=== PATIENT | male | born 1960 | race Caucasian/White ===

== ENCOUNTER 2017-01-22 11:41 | Day surgery (SDC) | payer OTHER ==
[~2017-01-22 11:41] MED LIST: ASPIRIN EC 325 MG TAB PO ONE; DIAZEPAM 5 MG TAB PO ONE; FAMOTIDINE 20 MG TAB PO ONE; NS 1,000 ML IV ONE; diphenhydrAMINE 25 MG CAP PO ONE
[2017-01-22] MEDS ORDERED: LIDOCAINE 1% 30 ML SDV ONE (11:45)
[2017-01-22] MEDS ORDERED: VERAPAMIL 5 MG/2 ML VIAL ONE (11:46)
[2017-01-22] MEDS ORDERED: fentaNYL 100 MCG/2 ML INJ ONE (11:46)
[2017-01-22] MEDS ORDERED: MIDAZOLAM 2 MG/2 ML VIAL ONE ×2 (11:46)
[2017-01-22] MEDS ORDERED: HEPARIN 10,000 UNIT/10 ML MDV ONE (11:46)
[2017-01-22] MEDS ORDERED: IOPAMIDOL (ISOVUE-370) 150 ML BTL IV ONE (11:47)
[2017-01-22 11:51] LABS: % IMMATURE GRANULYOCYTES 1.1 % (0.0-1.1); ABSOLUTE IMMATURE GRANULOCYTES 0.09 10^3/uL (0.00-0.10); ADD DIFF? NO; ADD MORPH? NO; ADD SCAN? NO; ATYPICAL LYMPHOCYTE FLAG 20 (0-99); FRAGMENT RBC FLAG 0 (0-99); HEMATOCRIT 46.5 % (40.0-51.0); HEMOGLOBIN 15.9 g/dL (13.7-17.5); LEFT SHIFT FLG 10 (0-99); LIPEMIA HEMOLYSIS FLAG 90 (0-99); MEAN CELL HEMOGLOBIN 28.6 pg (27.9-34.1); MEAN CELL HEMOGLOBIN CONCENTR. 34.2 g/dL (32.4-36.7); MEAN CELL VOLUME 83.6 fL (81.5-99.8); MEAN PLATELET VOLUME 9.9 fL (8.7-11.7); PLATELET CLUMPS FLAG 0 (0-99); PLATELET COUNT 216 10^3/uL (150-400); RED BLOOD CELL COUNT 5.56 10^6/uL (4.40-6.38); RED CELL DISTRIBUTION WIDTH 11.9 % (11.5-15.2)
[2017-01-22 11:59] LABS: INR 1.03 (0.83-1.16); PROTIME(PATIENT) 13.4 SEC (12.0-15.0)
[2017-01-22 12:02] LABS: ANION GAP 12 mEq/L (8-16); CALCIUM 9.5 mg/dL (8.5-10.4); CARBON DIOXIDE 21 mEq/l (22-31); CHLORIDE 108 mEq/L (97-110); CHOLESTEROL 233 mg/dL (140-220); GLOMERULAR FILTRATION RATE > 60; GLUCOSE 92 mg/dL (70-100); HIGH DENSITY LIPOPROTEIN 53 mg/dL (40-65); LOW DENSITY LIPOPROTEIN 143 mg/dL (80-100); MAGNESIUM 2.1 mg/dL (1.6-2.3); NON-HIGH DENSITY LIPOPROTEIN 180 mg/dL (90-129); POTASSIUM 4.1 mEq/L (3.5-5.2); SODIUM 141 mEq/L (134-144); TRIGLYCERIDE 189 mg/dL (40-150); VERY LOW DENSITY LIPOPROTEINS 37 mg/dL (8-25)
[2017-01-22] MEDS ORDERED: NITROGLYCERIN 0.4 MG BTL SL PRN (13:01)
[2017-01-22] MEDS ORDERED: HYDROCODONE/APAP 5/325 TAB PO PRN (13:01)
[2017-01-22] MEDS ORDERED: ONDANSETRON 4 MG/2 ML VIAL IVP PRN (13:01)
[2017-01-22] MEDS ORDERED: ATROPINE SULFATE 1 MG/10 ML SYR IVP PRN (13:01)
[2017-01-22] MEDS ORDERED: OXYCODONE/APAP 5/325 TAB PO PRN (13:01)
--- NOTE | 2017-01-22 13:04 | PDDXCAT ---
Diagnostic Cath Note - . Date: 01/22/17 Preprint Analyst: Scar Indication: CCC Class III and IV angina on medical treatment - Procedure Access: right wrist Procedure: left heart catheterization, coronary angiography - Materials Left Heart Cath materials: standard multipack (JL4, JR4, pigtail) - Findings-Left Heart Catheterization LM: Unobstructed LAD: 20% proximal LAD stenosis LCX: Unobstructed RCA: Stents widely patent, no new focal stenosis. Dominant vessel EDP: 15 mm of mercury LVEF: 65% Wall motion: Normal Complications: None Estimated blood loss: <50ml Closure method: TR Band Assessment: Widely patent site of prior RCA stenting. Mild nonobstructive lesion involving the proximal LAD. Normal left ventricular systolic function without regional wall motion abnormalities. Chest pain syndrome of uncertain etiology. Plan: Aggressive secondary prevention. As needed nitroglycerin. Patient Problems: Problems Problem Status Onset Chest pain due to myocardial ischemia Acute Status post placement of stent in right coronary artery Acute Coronary arteriosclerosis Acute
== END 2017-01-22 16:38 | disposition home or self-care (01) ==
LOC: FCATH 11:41
PROVIDERS: ATTEND Internal Medicine Interventional Cardiology
PROC: B2111ZZ Fluoroscopy of Multiple Coronary Arteries using Low Osmolar Contrast (ICD-10-PCS; principal; 2017-01-22)
PROC: 4A023N7 Measurement of Cardiac Sampling and Pressure, Left Heart, Percutaneous Approach (ICD-10-PCS; principal; 2017-01-22)
PROC: B2151ZZ Fluoroscopy of Left Heart using Low Osmolar Contrast (ICD-10-PCS; principal; 2017-01-22)
DX: I25.110 Atherosclerotic heart disease of native coronary artery with unstable angina pectoris (principal); Z95.5 Presence of coronary angioplasty implant and graft
CPT/HCPCS: 93458; C1769; J1644; J2250; J3010; Q9967